=== PATIENT | female | born 1995 | race Asian ===

== ENCOUNTER → 2020-08-21 15:18 | Outpatient (BNVA) | payer OTHER, SELFPAY | PROVIDERS: Visit Provider Obstetrics & Gynecology | DX: Z30.9 Encounter for contraceptive management, unspecified (principal) | CPT/HCPCS: 99212 ==

== ENCOUNTER → 2022-06-17 08:17 | Outpatient (BNVA) | payer OTHER, SELFPAY | PROVIDERS: Visit Provider Advanced Practice Midwife | DX: Z32.01 Encounter for pregnancy test, result positive (principal); N92.6 Irregular menstruation, unspecified | CPT/HCPCS: 81025; 99202 ==

== ENCOUNTER → 2022-09-13 14:08 | Outpatient (BNVA) | payer OTHER, SELFPAY | PROVIDERS: Visit Provider Advanced Practice Midwife | DX: O09.32 Supervision of pregnancy with insufficient antenatal care, second trimester (principal); Z3A.19 19 weeks gestation of pregnancy; Z80.3 Family history of malignant neoplasm of breast; Z80.0 Family history of malignant neoplasm of digestive organs | CPT/HCPCS: 99212 ==

== ENCOUNTER 2022-10-15 10:11 | Outpatient (REF) | payer OTHER, SELFPAY ==
[2022-10-15 15:14] LABS: CT PCR NOT DETECTED (Not Detect.); NG PCR NOT DETECTED (Not Detect.)
[2022-10-16 11:23] LABS: BV Int Neg Control Negative (Negative); BV Int Pos Control Positive (Positive)
== END 2022-10-15 10:12 | disposition home or self-care (01) ==
LOC: HO.LNP 10:11
PROVIDERS: Visit Provider Advanced Practice Midwife
DX: O26.892 Other specified pregnancy related conditions, second trimester (principal); N89.8 Other specified noninflammatory disorders of vagina; Z3A.23 23 weeks gestation of pregnancy
CPT/HCPCS: 0353U; 87480; 87510; 87660; 88142; 99212

== ENCOUNTER 2022-11-29 14:23 | Outpatient (REF) | payer OTHER, SELFPAY ==
[2022-11-29 15:59] LABS: Amphetamine Screen Urine Not Detected (Not Detect); Barbiturates, Urine Not Detected (Not Detect); Benzodiazepines Screen Urine Not Detected (Not Detect); Cannabinoid Screen Urine Not Detected (Not Detect); Cocaine Screen Urine Not Detected (Not Detect); Fentanyl, urine Not Detected (Not Detect); Opiate Screen Urine Not Detected (Not Detect); Phencyclidine Screen Urine Not Detected (Not Detect)
[2022-11-29 16:02] LABS: Hematocrit 37.9 % (37.0-47.0); Hemoglobin 12.6 g/dl (12.0-16.0); Mean Corpuscular HGB Conc 33.2 g/dl (31.0-35.0); Mean Corpuscular Volume 84.2 fL (80.0-98.0); Mean Platelet Volume 9.1 fL (9.4-12.3); Platelet Count 290 X10*3/uL (160-400); Red Cell Distribution Width 12.7 % (11.0-16.0)
[2022-11-29 17:42] LABS: Glucose 1 Hour PP 50gm Dose 86 mg/dL (60-140)
[2022-11-30 11:18] LABS: Rubella IgG Antibody 1.06 Index
[2022-11-30 14:06] LABS: HBsAGNum1 0.21 S/CO (0.00-0.99); HIV AB/AG Nonreactive (Nonreactive); HIV Num 1 0.06 S/CO (0.00-0.99); Hepatitis B Surface Antigen Negative (Negative); ~HepC Num1 0.08 S/CO (0.00-0.79); ~Hepatitis C Antibody Nonreactive (Nonreactive)
[2022-11-30 14:26] LABS: Syphilis Screen Nonreactive (Nonreactive)
[2022-12-08 19:39] LABS: CF Ethnicity NG; Cystic Fibrosis NEGATIVE (NEGATIVE)
== END 2022-11-29 14:24 | disposition home or self-care (01) ==
LOC: HO.LAB 14:23
PROVIDERS: Obstetrics & Gynecology; Visit Provider Advanced Practice Midwife
DX: Z34.93 Encounter for supervision of normal pregnancy, unspecified, third trimester (principal); Z3A.30 30 weeks gestation of pregnancy
CPT/HCPCS: 80307; 81220; 82950; 85027; 86762; 86780; 86787; 86803; 86850; 86900; 87086; 87340; 87389; 99212

== ENCOUNTER → 2022-12-13 14:57 | Outpatient (BNVA) | payer OTHER, SELFPAY | PROVIDERS: Visit Provider Obstetrics & Gynecology | DX: O09.33 Supervision of pregnancy with insufficient antenatal care, third trimester (principal); Z3A.32 32 weeks gestation of pregnancy | CPT/HCPCS: 99212 ==

== ENCOUNTER → 2022-12-27 14:42 | Outpatient (BNVA) | payer OTHER, SELFPAY | PROVIDERS: Visit Provider Obstetrics & Gynecology | DX: O36.5930 Maternal care for other known or suspected poor fetal growth, third trimester, not applicable or unspecified (principal); Z3A.34 34 weeks gestation of pregnancy | CPT/HCPCS: 99212 ==

== ENCOUNTER → 2023-01-11 15:00 | Outpatient (BNVA) | payer OTHER, SELFPAY | PROVIDERS: Visit Provider Obstetrics & Gynecology | DX: Z34.03 Encounter for supervision of normal first pregnancy, third trimester (principal); Z3A.36 36 weeks gestation of pregnancy | CPT/HCPCS: 99212 ==

== ENCOUNTER 2023-01-12 15:48 | Outpatient (REF) | payer OTHER, SELFPAY ==
[2023-01-13 04:50] LABS: CT PCR NOT DETECTED (Not Detect.); NG PCR NOT DETECTED (Not Detect.)
[2023-01-14 10:59] LABS: Allergic to Penicillin? No
== END 2023-01-12 15:49 | disposition home or self-care (01) ==
LOC: HO.LNP 15:48
PROVIDERS: Visit Provider Advanced Practice Midwife
DX: Z34.93 Encounter for supervision of normal pregnancy, unspecified, third trimester (principal); Z68.36 Body mass index [BMI] 36.0-36.9, adult
CPT/HCPCS: 0353U; 87150; 99212

== ENCOUNTER 2023-01-12 16:12 | Outpatient (REF) | payer OTHER, SELFPAY | END 2023-01-12 16:13 | disposition home or self-care (01) | LOC: HO.LAB 16:12 | PROVIDERS: Visit Provider Advanced Practice Midwife | DX: Z13.89 Encounter for screening for other disorder (principal) ==

== ENCOUNTER → 2023-01-19 13:59 | Outpatient (BNVA) | payer OTHER, SELFPAY | PROVIDERS: Visit Provider Advanced Practice Midwife | DX: O09.33 Supervision of pregnancy with insufficient antenatal care, third trimester (principal); O26.893 Other specified pregnancy related conditions, third trimester; G47.62 Sleep related leg cramps; Z3A.37 37 weeks gestation of pregnancy; Z23 Encounter for immunization | CPT/HCPCS: 81003; 90471; 90715; 99212 ==

== ENCOUNTER → 2023-01-28 14:53 | Outpatient (BNVA) | payer OTHER, SELFPAY | PROVIDERS: Visit Provider Advanced Practice Midwife | DX: O36.5930 Maternal care for other known or suspected poor fetal growth, third trimester, not applicable or unspecified (principal); O09.33 Supervision of pregnancy with insufficient antenatal care, third trimester; Z3A.38 38 weeks gestation of pregnancy | CPT/HCPCS: 81003; 99212 ==

== ENCOUNTER → 2023-02-03 15:36 | Outpatient (BNVA) | payer OTHER, SELFPAY | PROVIDERS: Visit Provider Advanced Practice Midwife | DX: Z34.03 Encounter for supervision of normal first pregnancy, third trimester (principal); Z3A.39 39 weeks gestation of pregnancy | CPT/HCPCS: 81003; 99212 ==

== ENCOUNTER → 2023-02-10 12:39 | Outpatient (BNVA) | payer OTHER, SELFPAY | PROVIDERS: Visit Provider Advanced Practice Midwife | DX: O34.33 Maternal care for cervical incompetence, third trimester (principal); Z3A.40 40 weeks gestation of pregnancy | CPT/HCPCS: 81003; 99212 ==

== ENCOUNTER 2025-01-22 12:09 | Outpatient (REF) | payer OTHER, SELFPAY ==
--- OUTSIDE RECORDS SUMMARY | 2025-01-22 15:22 | XMS_ITS | Clinical Summary ---
Author Organization [facility] ity Address [address] [place] [address] Care Team Providers Care Lime Hide Inspector Name Role Phone Unavailable Primary Care Provider [...]
[2025-01-23 08:39] LABS: HIV AB/AG Nonreactive (Nonreactive); HIV Num 1 0.06 S/CO (0.00-0.99)
== END 2025-01-22 12:10 | disposition home or self-care (01) ==
LOC: HO.LAB 12:09
PROVIDERS: Visit Provider Physician Assistant
DX: Z20.6 Contact with and (suspected) exposure to human immunodeficiency virus [HIV] (principal)
CPT/HCPCS: 36415; 87389; 99202

== ENCOUNTER 2025-01-22 12:09 | Outpatient (AMB) | payer OTHER, SELFPAY ==
--- NOTE | 2025-01-22 12:46 | MHC.OFFWIV ---
Intake Vital Signs 01/22/25 12:48 Weight 155 lb BP 122/80 Blood Pressure Location Rt brachial Position Sitting Intake Visit Reasons: PROCESS LEAD-std Intake Note: Patient here for STD as she recently found her partner cheated. Patient Tobacco Use Status: Never used Tobacco Allergies No Known Allergies Allergy (Verified 01/22/25 12:47) Do you need a note to return to daycare/school/sports/work: No HPI HPI Comments History of Present Illness Details History of Present Illness - The patient is a 29-year-old female presenting with concern for potential HIV exposure from an unfaithful partner of 6 years who recently tested positive. - She is currently asymptomatic, with no signs suggestive of acute HIV infection. She denies fevers or chills, weight loss, night sweats, lymph node swelling, rashes, muscle aches, fatigue, change in menstural cyceles or abnormal vaginal discharge. - The patient has a recent experience of UTI symptoms, self-managed with [id number] treatment, with resolution of symptoms. - Previous HIV testing in November 2022 returned negative results; however, no follow-up testing has been completed since. - The patient is seeking comprehensive STD testing, primarily focused on HIV, and she is asking if her insurance would provide coverage for the testing. - She does not have a PCP, last appt with Dr Moreno in 2021 for PE was a no show. She thinks she has Dr Hernandez listed as her PCP with her ins co. Physical Exam General: Cooperative, healthy appearing, comfortable, no acute distress and well developed Orientation: Patient oriented x3 Limitations: No limitations Head: Normal to inspection Ears: Hearing grossly normal bilaterally Nose: Normal External nose present Face and sinus: Normal facial exam Eyes: Appearance normal, both eyes and all related structures Neck: Normal visual inspection and Yes full ROM Respiratory: Normal respiratory effort and able to speak in complete sentences. Skin: No rashes or lesions noted Neuro: Patient oriented x3 Extremities: Normal to inspection [facility]LY [facility], [facility] Medical History (Updated 01/22/25 @ 12:58 by Carrie Colbert PA-C) Encounter for supervision of normal in third trimester Family History Maternal Grandmother Breast cancer Depression Arthritis Maternal Grandfather No problems noted. Paternal Grandfather No problems noted. Brother Asthma Social History Household Members: Significant Other Both parents involved: Yes Caregiver staying overnight: No Housing: Apartment Are you a primary caregiver services home to a significant other at home: No Do you presently have visiting nurse or other home services: No 75 years or older and lives alone: No Patient Tobacco Use Status: Never used Tobacco Substance Use Type: Marijuana Agree to transfusion: Yes service: No Current occupational status: employed Current occupation: synthetic department supervisor client services assistant Current occupational exposures/hazards: No Sexual orientation: Straight/Heterosexual Gender identity: Female Cognitive needs: No Hearing needs: No Vision needs: No Female Reproductive History Menstrual Age of Menarche: 11 Review of Systems Const All systems reviewed & are unremarkable except as noted in HPI and below Physical Exam Vital Signs: Last Vital Signs BP 122/80 01/22/25 12:48 Assessment & Plan Assessment & Plan (1) Exposure to HIV: Code(s): Z20.6 - Contact with and (suspected) exposure to human immunodeficiency virus [HIV] Plan: Today, we will conduct an HIV test given the exposure from a partner recently found to be HIV positive. Although the patient has no symptoms suggesting acute HIV infection, confirming her status is crucial. Her last negative result in November 2022 provides some reassurance, although no further tests have been done since. While we discussed potential inclusion of comprehensive STD testing, this will hinge on what her insurance covers, and she will need to confirm coverage so she has deferred any other STI testing today. Advised on the need for a primary care provider to facilitate additional testing and continuous care, especially because she could not access Dr. Curt Hernandez. I told her I will assist with obtaining an appointment if her testing results in a positive result as she will need follow up care and treatment. She plans to enroll with a new PCP for further assessments and will call her insurer to ensure coverage for today's and any future tests. Patient was informed and verbally consented to the use of an ambient scribe for clinic note documentation during this visit. Orders: Orders HIV Ab/Ag Today Z20.6 - Contact with and (suspected) exposure to human immunodeficiency virus [HIV] Coding Level of Care Code New Pt Level 3 (03119) Diagnoses Exposure to HIV Z20.6
[2025-01-22 12:48] VITALS: BP 122/80
--- OUTSIDE RECORDS SUMMARY | 2025-01-22 14:34 | XMS_ITS | Clinical Summary ---
Author Organization [facility] ity Address [address] [place] [address] Care Team Providers Care Compound Worker Name Role Phone Unavailable Primary Care Provider Unavailabl e Family History Relation Name Status Comments Brother Alive 09/20/99 LISA Father Alive 1969 Mother Alive 1971 Social History Tobacco Use Types Packs/Day Years Used Date Smoking Tobacco: Never Alcohol Use Standard Drinks/Week Comments Not Asked 0 (1 standard drink = 0.6 oz pur e alcohol) Comments Unknown Sex and Gender Information Value Date Recorded Sex Assigned at Not on file Legal Sex Female 12:47 PM EST Gender Identity Not on file Sexual Orientation Not on file Obstetrics History Plan of Treatment Health Maintenance Due Date Last Done Comments DTaP,Tdap,and Td Vaccines (1 - Tdap) 2012 Hepatitis B Vaccines (1 of 3 - 19+ 3-dose series) 2012 Cervical Cancer Screening: P ap Smear 2014 Depression Screening 08/31/2022 HIV Screening 08/31/2022 Hepatitis C Screening 08/31/2022 Social Influencers of Health Screening 08/31/2022 COVID-19 Vaccine ( - 2023-2 5 season) 2024 Influenza Vaccine (Season Ended) 2025 HIB Vaccines Aged Out No longer eligi ble based on patient's age to complete this topic HPV Vaccines Aged Out No longer eligi ble based on patient's age to complete this topic Hepatitis A Vaccines Aged Out No long er eligible based on patient's age to complete this topic IPV Vaccines Aged Out No longer eligi ble based on patient's age to complete this topic MMR Vaccines Aged Out No longer eligi ble based on patient's age to complete this topic Meningococcal ACWY Vaccine Aged Out N o longer eligible based on patient's age to complete this topic Meningococcal B Vaccine Aged Out No l onger eligible based on patient's age to complete this topic Pneumococcal Vaccine: Pediat rics (0 to 5 Years) and At-Risk Patients (6 to 64 Years) Aged Out No longer eligible b ased on patient's age to complete this topic RSV Immunization Patients Un francesco 20 months Aged Out No longer eligible b ased on patient's age to complete this topic Varicella Vaccines Aged Out No longer eligible based on patient's age to complete this topic
== END 2025-01-22 13:46 | disposition home or self-care (01) ==
PROVIDERS: Visit Provider Physician Assistant
DX: Z20.6 Contact with and (suspected) exposure to human immunodeficiency virus [HIV] (principal)

== ENCOUNTER 2025-04-01 12:37 | Outpatient (REF) | payer OTHER, SELFPAY ==
[2025-04-02 04:29] LABS: Syphilis Screen Nonreactive (Nonreactive)
[2025-04-02 04:34] LABS: HIV AB/AG Nonreactive (Nonreactive); HIV Num 1 0.06 S/CO (0.00-0.99)
== END 2025-04-01 12:38 | disposition home or self-care (01) ==
LOC: HO.HMGCLDS 12:37
PROVIDERS: Visit Provider Physician Assistant Medical
DX: Z71.1 Person with feared health complaint in whom no diagnosis is made (principal); Z20.2 Contact with and (suspected) exposure to infections with a predominantly sexual mode of transmission; Z20.6 Contact with and (suspected) exposure to human immunodeficiency virus [HIV]
CPT/HCPCS: 36415; 86780; 87389; 87491; 87591; 99212

== ENCOUNTER 2025-04-01 12:37 | Outpatient (AMB) | payer OTHER, SELFPAY ==
--- OUTSIDE RECORDS SUMMARY | 2025-04-01 13:03 | XMS_ITS | Clinical Summary ---
Author Organization [facility] ity Address [address] [place] [address] Care Team Providers Care Parts Person Name Role Phone Unavailable Primary Care Provider [...]
--- NOTE | 2025-04-01 13:11 | MHC.OFFWIV ---
Intake Vital Signs 04/01/25 13:15 Height 5 ft Weight 147 lb BMI 28.7 BP 116/88 Blood Pressure Location Rt brachial Position Sitting Pulse 71 Pulse Source Pulse Oximeter Temp 98.2 F Temp Source Oral Pulse Oximetry (%) 99 Oxygen Delivery Method Room Air Intake Visit Reasons: EP STD check Intake Note: pt presents for STD check, concern for HIV as her partner was diagnosed with HIV, reports asymptomatic. Patient Tobacco Use Status: Never used Tobacco Allergies No Known Allergies Allergy (Verified 04/01/25 13:16) Do you need a note to return to daycare/school/sports/work: No HPI HPI Comments History of Present Illness Details History of Present Illness - The patient is a 29-year-old female presenting for screening after potential HIV exposure. - The patient reports her fianc? was diagnosed with HIV, prompting her to seek testing despite a previous negative result. - She denies any symptoms associated with HIV infection. - The patient mentions irregular menstruation, which she attributes to her Nexplanon implant. - She reports spotting but no vaginal discharge or itching. - No symptoms such as discharge, itchiness, or burning were reported. - She denies abd pain, n/v/d, fever, chills, CP, SOB, rashes or lesions. Physical Exam General: Cooperative, healthy appearing, comfortable, no acute distress and well developed Respiratory: Normal respiratory effort and able to speak in complete sentences. Clear to auscultation bilaterally Cardiovascular: Regular rate and rhythm. Normal S1 and S2 GI: Normal to inspection. Soft to palpation and nontender Skin: No rashes or lesions noted Patient was informed and verbally consented to the use of an ambient scribe for clinic note documentation during this visit. [facility] Medical History (Updated 04/01/25 @ 13:50 by Juliet Childers PA-C) Concern about STD in female without diagnosis Encounter for supervision of normal in third trimester Family History Maternal Grandmother Breast cancer Depression Arthritis Maternal Grandfather No problems noted. Paternal Grandfather No problems noted. Brother Asthma Social History Household Members: Significant Other Both parents involved: Yes Caregiver staying overnight: No Housing: Apartment Are you a primary patient care secretary to a significant other at home: No Do you presently have visiting nurse or other home services: No 75 years or older and lives alone: No Patient Tobacco Use Status: Never used Tobacco Substance Use Type: Marijuana Agree to transfusion: Yes service: No Current occupational status: employed Current occupation: parts sales representative assistant manager bilingual Current occupational exposures/hazards: No Sexual orientation: Straight/Heterosexual Gender identity: Female Cognitive needs: No Hearing needs: No Vision needs: No Female Reproductive History Menstrual Age of Menarche: 11 Review of Systems Const All systems reviewed & are unremarkable except as noted in HPI and below Physical Exam Vital Signs: Last Vital Signs Temp 98.2 F 04/01/25 13:15 Pulse 71 04/01/25 13:15 BP 116/88 04/01/25 13:15 Pulse Ox 99 04/01/25 13:15 Oxygen Delivery Method Room Air 04/01/25 13:15 BMI result Body Mass Index 28.7 Assessment & Plan Assessment & Plan (1) Concern about STD in female without diagnosis: Code(s): Z71.1 - Person with feared health complaint in whom no diagnosis is made Plan Most likely exposure to STD and HIV Plan - Conduct screening for sexually transmitted infections including HIV, gonorrhea, chlamydia, and hepatitis. - will call her with the results Orders: Orders HIV Ab/Ag Today Z20.6 - Contact with and (suspected) exposure to human immunodeficiency virus [HIV] Syphilis Screen Today Z20.6 - Contact with and (suspected) exposure to human immunodeficiency virus [HIV] Hepatitis C Antibody Reflex Today Z20.2 - Contact with and (suspected) exposure to infections with a predominantly sexual mode of transmission Coding Level of Care Code Est Pt Level 3 (61268) Diagnoses Concern about STD in female without diagnosis Z71.1
[2025-04-01 13:15] VITALS: BP 116/88; PULSE 71; TEMP 36.8; O2SAT 99; BMI 28.7
== END 2025-04-01 14:02 | disposition home or self-care (01) ==
PROVIDERS: Visit Provider Physician Assistant Medical
DX: Z71.1 Person with feared health complaint in whom no diagnosis is made (principal)

== ENCOUNTER 2025-04-01 15:25 | Outpatient (REF) | payer OTHER, SELFPAY ==
[2025-04-02 12:44] LABS: CT PCR Urine NOT DETECTED (Not Detect.); NG PCR Urine NOT DETECTED (Not Detect.)
== END 2025-04-01 15:26 | disposition home or self-care (01) ==
LOC: HO.LAB 15:25
PROVIDERS: Visit Provider Physician Assistant Medical
DX: Z13.89 Encounter for screening for other disorder (principal)
CPT/HCPCS: 36415; 87491; 87591

== ENCOUNTER 2025-09-10 08:05 | Outpatient (AMB) | payer OTHER, SELFPAY ==
--- NOTE | 2025-09-10 08:16 | MHC.PC.OV ---
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 Transferring care from [facility]. Medical records have been requested and have not received. Blood Bank Laboratory Technologist Required: No Household Cook: Not Required per policy Accompanied by: Self / Same As Patient Allergies No Known Allergies Allergy (Verified 09/10/25 08:21) Medication List - Last Reconciled 09/10/25 by Rafaela Hwang PA-C etonogestrel (Nexplanon) subdermal Tobacco use date assessed: 09/10/25 Dental Screening Dental Screen Date: 09/10/25 Did you have a dental visit in the last 12 months?: No Did you have a dental problem in the last 6 months where you did not have access to dental care?: No Was dental information given to patient?: Patient has dentist HPI DESIGN EDITOR-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 Presenting for a new patient visit. The patient reports a long-standing history of anxiety which she has managed on her own. She states her anxiety is a daily issue, with symptoms of a fast heartbeat, nausea, racing thoughts about past and future events, and OCD-like cleaning behaviors. As a teenager, she tried alprazolam once after a traumatic experience, which was given to her by a friend, and she recalls it helped calm her. She has been using marijuana at night to help calm down but wishes to stop. The patient reports that since last December, she experienced episodes of heavy, dark spotting between her regular monthly cycles, which also had an unusual odor. These symptoms have improved and have not occurred in the last one to two months. She wonders if this was related to hormonal imbalance, stress from her partner's diagnosis. The patient has a Nexplanon implant, which was placed at her six-week check-up, roughly two years ago. This year, her partner was diagnosed with HIV, and is now undetectable. Due to this, she has been getting STD and HIV testing at a walk-in clinic but has not been tested in the last few months and requests repeat testing. [facility] Medical History Concern about STD in female without diagnosis Encounter for supervision of normal in third trimester Surgical History History of delivery Family History Maternal Grandmother Breast cancer Depression Arthritis Maternal Grandfather No problems noted. Paternal Grandfather No problems noted. Brother Asthma Other Mental health disorder Social History Household Members: Significant Other Both parents involved: Yes Caregiver staying overnight: No Housing: Apartment Are you a primary hearing healthcare practitioner to a significant other at home: No Do you presently have visiting nurse or other home services: No 75 years or older and lives alone: No Alcohol intake: never Patient Tobacco Use Status: Never used Tobacco e-Cigarette/Vaping Use: Never Used Second Hand Smoke Exposure: No Substance Use Type: Marijuana Agree to transfusion: Yes service: No Current occupational status: employed Current occupation: [employer] Current occupational exposures/hazards: No Sexual orientation: Straight/Heterosexual Gender identity: Female Cognitive needs: No Hearing needs: No Vision needs: No Female Reproductive History Menstrual Age of Menarche: 11 control method: implanted Questionnaire PHQ-9 Over the last 2 weeks, how often have you been bothered by any of the following problems? 1. Little interest or pleasure in doing things: several days 2. Feeling down, depressed, or hopeless: several days 3. Trouble falling or staying asleep, or sleeping too much: several days 4. Feeling tired or having little energy: several days 5. Poor appetite or overeating: more than half the days 6. Feeling bad about yourself - or that you are a failure or have let yourself or your family down: several days 7. Trouble concentrating on things, such as reading the newspaper or watching television: not at all 8. Moving or speaking so slowly that other people could have noticed. Or the opposite - being so fidgety or restless that you have been moving around a lot more than usual: not at all 9. Thoughts that you would be better off or of hurting yourself in some way: not at all Total score: 7 Depression Screening Interpretation: Positive Depression Screening Follow-up: Existing condition and New Medication prescribed Depression Screening Done: Yes 36183 - PHQ-9 Billing: Yes Source: Developed by Drs. Osmani Herzog, Mirian Bland, Justyn Garcia and colleagues, with an educational paul from [employer]. Thrive Questionnaire Date Thrive assessed: 09/10/25 I am a: Patient What is your living situation today?: I have a steady place to live Within the past 12 months, did the food you bought not last and you didn't have the money to get more?: Never true Within the past 12 months, did you worry whether your food would run out before you got money to buy more?: Never true Do you have trouble paying for medicines?: No Do you have trouble getting transportation to medical appointments?: No Do you have trouble paying your heating and electricity bill?: Yes Do you have trouble taking care of your child, family member or friend?: No Do you have trouble with day-to-day activities such as bathing, preparing meals, shopping, managing finances, etc.?: I choose not to answer this question Are you currently unemployed and looking for a job?: No Are you interested in more education?: Yes Please select the resources that you would like help with: Utilities Currently or been in a relationship where the following occur: No concerns reported THRIVE Score: 1 AUDIT C Alcohol Use Questionnaire (AUDIT-C) 1. How often do you have a drink containing alcohol?: Never Total Score: 0 OSMANY-7 AMB Questionnaire OSMANY-7 Date OSMANY - 7 assessed: 09/10/25 Feeling nervous, anxious, or on edge: 3 = Nearly every day Not being able to stop or control worryin = Nearly every day Worrying too much about different things: 3 = Nearly every day Trouble relaxin = Nearly every day Being so restless that it is hard to sit still: 2 = More than half the days Becoming easily annoyed or irritable: 2 = More than half the days Feeling afraid as if something awful might happen: 2 = More than half the days Total OSMANY-7 score (0-4 normal; 5-9 mild; 10-14 moderate; 15-21 severe): 18 Source: Developed by Drs. Osmani Herzog, Mirian Bland, Justyn Garcia and colleagues, with an educational paul from [employer]. OSMANY-7 Assessment Billing OSMANY-7 Assessment Tool: OSMANY-7 Assessment 04727 Review of Systems Const Denies body aches, Denies chills, Denies fever(s), Denies headache(s) and Denies poor appetite Eyes Reports no additional complaints ENT Denies dizziness and Denies headache(s) Card Denies chest pain, Denies edema, Denies lightheadedness and Denies dyspnea Resp Denies dyspnea GI Denies nausea and Denies vomiting Reports no additional complaints Musc Reports no additional complaints and Denies abnormal gait Skin/Breast Reports system reviewed and no additional complaints, except as documented Neuro Denies abnormal gait, Denies dizziness and Denies headache(s) Psych Reports no additional complaints Physical exam (Primary Care) Vital Signs: Last Vital Signs Temp 97.1 F 09/10/25 08:18 Pulse 69 09/10/25 08:18 BP 90/60 09/10/25 08:18 Pulse Ox 97 09/10/25 08:18 Oxygen Delivery Method Room Air 09/10/25 08:18 BMI result Body Mass Index 29.0 Tobacco/Smoking Status: Tobacco use Status Tobacco use date assessed 09/10/25 09/10/25 08:21 Patient Tobacco Use Status Never used Tobacco 09/10/25 08:27 e-Cigarette/Vaping Use Never Used 09/10/25 08:27 PHQ-9: PHQ-9 Score PHQ-9: Total score 7 09/11/25 08:07 Depression Screening Interpretation: Positive Depression Screening Follow-up: Existing condition and New Medication prescribed Thrive Assessment: Date of Thrive Assessment Date Thrive assessed 09/10/25 09/10/25 08:21 Currently or been in a relationship where the following occur: No concerns reported Const General: cooperative, healthy appearing, comfortable and no acute distress Orientation/consciousness: patient oriented x3 HENMT Head: Yes normocephalic Ears: hearing grossly normal bilaterally General nose exam: Normal external nose present Eyes General: appearance normal, both eyes and all related structures Conjunctivae: conjunctivae normal Neck Neck: Yes full ROM and Yes no lymphadenopathy Resp Effort & Inspection: normal respiratory effort Auscultation: clear to auscultation bilaterally, no crackles, no rales, no rhonchi and no wheezes Cardio Rate: regular rate Rhythm: regular rhythm Skin General skin exam: no rashes or lesions noted Neuro General: patient oriented x3 Gait exam (Neuro): Normal gait present Extrem General: Yes normal to inspection, Yes full ROM and No edema Psych Affect: normal affect Attitude: cooperative Insight: Good insight present (Psych) Judgement: Good judgement present (Psych) Coding Level of Care Code New Pt Level 4 (32169) Diagnoses Abnormal uterine bleeding (AUB) N93.9 Anxiety F41.9 Depression F32.A Nexplanon in place Z97.5 Screening for HIV (human immunodeficiency virus) Z11.4 Additional Codes OSMANY-7 Assessment Billing - OSMANY-7 Assessment Tool: OSMANY-7 Assessment 88754 ([id number]) PHQ-9 - 49769 - PHQ-9 Billing: Yes ([id number]) Assessment & Plan Assessment & Plan (1) Abnormal uterine bleeding (AUB): Code(s): N93.9 - Abnormal uterine and vaginal bleeding, unspecified Category: Medical Plan: The patient reported recent-past episodes of heavy, dark, and malodorous intermenstrual spotting, which were new for her despite long-term use of Nexplanon. The symptoms have since resolved. Potential causes discussed included hormonal changes , the Nexplanon implant, stress, fibroids, or other ovarian issues. Hormone levels will be checked as part of the ordered blood work. A referral to a nanny/household manager will be placed for further evaluation. (2) Anxiety: Code(s): F41.9 - Anxiety disorder, unspecified Category: Medical Plan: The patient reports daily anxiety symptoms, including palpitations, nausea, and racing thoughts, which she has been self-managing with marijuana. She has difficulty falling asleep due to racing thoughts. The patient is interested in medication for as-needed use but does not want to take a pill daily. The options of SSRIs such as sertraline or Prozac for daily use were discussed, but the patient declined due to concerns about side effects and daily dosing. Lorazepam was also discussed as an as-needed option, but its side effects, including drowsiness and high dependence rate, were noted. Hydroxyzine 25 mg was prescribed for as-needed use, up to three times a day, for anxiety and to aid with sleep. A referral will be placed for counseling, and the patient was informed that these services also offer medication management if needed. (3) Depression: Code(s): F32.A - Depression, unspecified Category: Medical Plan: See above (4) Nexplanon in place: Code(s): Z97.5 - Presence of (intrauterine) contraceptive device Category: Social Hx Plan: Referral was placed to gynecology today (5) Screening for HIV (human immunodeficiency virus): Code(s): Z11.4 - Encounter for screening for human immunodeficiency virus [HIV] Category: Medical Plan: The patient's partner was diagnosed with HIV this year, and she requests testing. She has been undergoing periodic testing but has not been tested in the last few months. The patient also inquired about PrEP (pre-exposure prophylaxis) and its implications for future . HIV testing has been ordered as part of her blood work. Further information regarding medications to prevent transmission, especially concerning future pregnancies, will be researched and provided to the patient. Plan This is a new patient visit to establish care, as she has not seen a primary care provider since before giving approximately two years ago. A comprehensive panel of fasting blood work was ordered, including yearly labs for kidney function, liver function, and electrolytes, as well as hormone levels to investigate irregular bleeding and HIV/STD screening. A referral will be made for a new nanny/household manager, as her previous INFRASTRUCTURE TECHNICIAN may no longer be practicing. The patient is scheduled to follow up in 3-4 months for an annual physical and to check on her anxiety. This note was constructed using voice recognition software. While every effort has been made to ensure accuracy and jukebox routeman, still areas may have been included sometimes these areas may affect the content or meeting of the given symptoms. Total time spent caring for the patient today was 30 minutes. This includes time spent before the visit reviewing the chart, time spent during the visit, and time spent after the visit and documentation. Patient was informed and verbally consented to the use of an ambient scribe for clinic note documentation during this visit. Orders: Orders HIV Ab/Ag 09/10/25 Z20.6 - Contact with and (suspected) exposure to human immunodeficiency virus [HIV] Vitamin D 25-OH Total 09/10/25 Z13.21 - Encounter for screening for nutritional disorder Complete Blood Count Auto Diff 09/10/25 Z13.0 - Encounter for screening for diseases of the blood and blood-forming organs and certain disorders involving the immune mechanism Comprehensive Met. Panel 09/10/25 Z00.00 - Encounter for general adult medical examination without abnormal findings Lipid Panel 09/10/25 Z13.220 - Encounter for screening for lipoid disorders Prolactin 09/10/25 N93.9 - Abnormal uterine and vaginal bleeding, unspecified Estrogen 09/10/25 N93.9 - Abnormal uterine and vaginal bleeding, unspecified TSH reflex Free T4 09/10/25 Z13.29 - Encounter for screening for other suspected endocrine disorder Vitamin B12 and Folate 09/10/25 Z13.21 - Encounter for screening for nutritional disorder UA CC w/rflx Micro + Cult 09/10/25 R35.89 - Other polyuria IRON PROFILE 09/10/25 N93.9 - Abnormal uterine and vaginal bleeding, unspecified Follicle Stimulating Hormone 09/10/25 N93.9 - Abnormal uterine and vaginal bleeding, unspecified Lutenizing Hormone 09/10/25 N93.9 - Abnormal uterine and vaginal bleeding, unspecified HCG Quantitative 09/10/25 N93.9 - Abnormal uterine and vaginal bleeding, unspecified Referrals INFRASTRUCTURE TECHNICIAN Referral Z12.4 - Encounter for screening for malignant neoplasm of cervix, Z97.5 - Presence of (intrauterine) contraceptive device Counseling Referral F32.A - Depression, unspecified, F41.9 - Anxiety disorder, unspecified Medications: New hydroxyzine HCl 25 mg PO BID PRN 60 tabs 0RF anxiety F32.A - Depression, unspecified
[2025-09-10 08:18] VITALS: BP 90/60; PULSE 69; TEMP 36.2; O2SAT 97; BMI 29.0
== END 2025-09-10 09:03 | disposition home or self-care (01) ==
LOC: HO.HMCH 08:06
DX: N93.9 Abnormal uterine and vaginal bleeding, unspecified (principal); F41.9 Anxiety disorder, unspecified; F32.A Depression, unspecified; Z97.5 Presence of (intrauterine) contraceptive device; Z11.4 Encounter for screening for human immunodeficiency virus [HIV]

== ENCOUNTER → 2025-09-10 08:05 | Outpatient (BNVA) | payer OTHER, SELFPAY | DX: F41.9 Anxiety disorder, unspecified (principal); F32.A Depression, unspecified; N93.9 Abnormal uterine and vaginal bleeding, unspecified; Z97.5 Presence of (intrauterine) contraceptive device | CPT/HCPCS: 96127; 99202 ==